=== PATIENT | female | born 1980 | race Caucasian/White ===

== ENCOUNTER 2020-12-03 16:11 | Emergency (ER) | payer OTHER ==
[~2020-12-03] VITALS: Ht 160 cm; Wt 68.0 kg
[2020-12-03 16:27] VITALS: BP 143/97; Ht 160 cm; Wt 68.0 kg
[2020-12-03 19:05] LABS: UA SPECIFIC GRAVITY <=1.005 (1.005-1.035); microscopic required? YES; urine erythrocyte 3+ (NEGATIVE)
== END 2020-12-03 17:29 | disposition admitted as inpatient to this hospital (09) ==
LOC: ED 16:11
PROVIDERS: Emergency Medicine
DX: N39.0 Urinary tract infection, site not specified (principal)

== ENCOUNTER 2020-12-30 16:05 | Emergency (ER) | payer OTHER ==
[~2020-12-30] VITALS: Ht 160 cm; Wt 68.9 kg
[2020-12-30 16:15] VITALS: Ht 160 cm; Wt 68.9 kg
[2020-12-30 16:43] LABS: microscopic required? NO
[2020-12-30 16:50] LABS: UA SPECIFIC GRAVITY <=1.005 (1.005-1.035); urine erythrocyte NEGATIVE (NEGATIVE)
[2020-12-30 17:33] VITALS: BP 141/77
== END 2020-12-30 17:33 | disposition home or self-care (01) ==
LOC: ED 16:05
PROVIDERS: Emergency Medicine
DX: M54.6 Pain in thoracic spine (principal)